=== PATIENT | male | born 1995 | race Two or more races ===

== ENCOUNTER 2022-04-22 19:27 | Emergency (ER) | payer BC, OTHER ==
[~2022-04-22] VITALS: Ht 180.3 cm; Wt 140.0 kg
[2022-04-22 19:27] VITALS: BP 124/68
[2022-04-22] MEDS ORDERED: IBUP800T27 PO (22:26)
== END 2022-04-22 22:31 | disposition home or self-care (01) ==
LOC: ER 19:29
DX: S46.911A Strain of unspecified muscle, fascia and tendon at shoulder and upper arm level, right arm, initial encounter (principal); X58.XXXA Exposure to other specified factors, initial encounter; Y93.89 Activity, other specified; Y92.89 Other specified places as the place of occurrence of the external cause; Y99.8 Other external cause status
CPT/HCPCS: 73030

== ENCOUNTER 2022-08-06 05:17 | Emergency (ER) | payer BC ==
[~2022-08-06] VITALS: Ht 180.3 cm; Wt 63.0 kg
[~2022-08-06 05:17] MED LIST: IBUP800T27 PO
[2022-08-06 07:19] VITALS: BP 124/77
[2022-08-06] MEDS ORDERED: ACETAMINOPHEN 500 MG TAB PO ONE (07:45)
[2022-08-06] MEDS ORDERED: guaiFENesin-DM 100/10mg/5ml SYR PO ONE (07:45)
[2022-08-06] MEDS ORDERED: AZITTAB PO (09:12)
[2022-08-06] MEDS ORDERED: PROM1SOL4 PO (09:12)
[2022-08-06] MEDS ORDERED: ACET1CAP14 PO (09:12)
== END 2022-08-06 09:15 | disposition home or self-care (01) ==
LOC: ER 05:22
DX: J06.9 Acute upper respiratory infection, unspecified (principal); Z20.822 Contact with and (suspected) exposure to COVID-19
CPT/HCPCS: 36415; 71045; 87426; 87804